=== PATIENT | female | born 1970 | race Caucasian/White ===

== ENCOUNTER 2017-11-18 21:57 | Emergency (ER) | payer OTHER ==
[~2017-11-18] VITALS: Ht 160 cm; Wt 125.0 kg
[~2017-11-18 21:57] MED LIST: HYZAAR 100-21 TABLET PO; IMITREX50 MG PO; LEXAPRO20 MG PO; LOPRESSOR25 MG PO; ONE-A-DAY ESSE1 EAC1 PO; VENTOLIN HFA18 GM IH; VITAMIN D22000 UNIT PO; Z-SLEEP50 MG/30 M PO
[2017-11-18 22:28] LABS: HEMATOCRIT 43.2 % (36.0-46.0); HEMOGLOBIN 15.2 G/DL (11.9-15.5); MCH 29.9 PG (29.0-34.0); MCHC 35.2 G/DL (30.0-36.0); PLATELET COUNT 447 K/uL (156-360); RBC DIS.WIDTH-CV 12.6 % (11.8-14.6); RBC DIS.WIDTH-SD 39.1 % (39-53); RED BLOOD COUNT 5.08 M/uL (3.80-5.20); WHITE BLOOD COUNT 12.9 K/uL (4.1-10.2)
[2017-11-18 22:40] LABS: ALBUMIN 4.2 g/dL (3.2-4.8); CHLORIDE 104 mEq/L (99-109); POTASSIUM 3.7 mEq/L (3.7-5.4); SODIUM 139 mEq/L (136-147)
[2017-11-18 22:42] LABS: GLUCOSE 156 mg/dL (70-99); TOTAL PROTEIN 8.2 g/dL (6.4-8.3)
[2017-11-18 22:44] LABS: TOTAL BILIRUBIN 0.4 mg/dL (0.0-1.0)
[2017-11-18 22:46] LABS: ALKALINE PHOSPHATASE 67 IU/L (3-129); GFR ESTIMATE (CALCULATED) > 59 mL/min/
[2017-11-18 22:47] LABS: UREA NITROGEN (BUN) 15 mg/dL (9-23)
[2017-11-18 22:48] LABS: AST (GOT) 21 IU/L (2-34)
[2017-11-18 22:49] LABS: ALT (GPT) 23 IU/L (3-49)
[2017-11-18 22:55] LABS: QUANTITATIVE HCG < 4.0 MIU/ML
[2017-11-19 00:37] LABS: TROP-I INTERPRETATION NEGATIVE; TROPONIN-I < 0.01 ng/mL (0.0-0.30)
[2017-11-19 01:12] LABS: APPEARANCE SL.HAZY ((CLEAR)); BILIRUBIN NEGATIVE; BLOOD NEGATIVE; COLOR YELLOW ((YELLOW)); GLUCOSE (STRIP) NEGATIVE; KETONES 5; LEUKOCYTES NEGATIVE; NITRITE NEGATIVE; PROTEIN (STRIP) 30; UROBILINOGEN 0.2 MG/DL (0.2-1.0)
[2017-11-19 01:21] LABS: BACTERIA NONE SEEN /HPF; EPITHELIAL CELLS 1+ /HPF; MUCUS 3+ /LPF; RED BLOOD CELLS 0-5 /HPF (0-5); UCUL ADDED? NO; WHITE BLOOD CELLS 0-5 /HPF (0-5)
[2017-11-19 02:15] VITALS: BP 113/78
== END 2017-11-19 02:29 | disposition home or self-care (01) ==
LOC: EME 21:57
DX: E86.1 Hypovolemia (principal); R55 Syncope and collapse; R73.9 Hyperglycemia, unspecified; R11.2 Nausea with vomiting, unspecified; R51 Headache; I10 Essential (primary) hypertension; Z87.442 Personal history of urinary calculi; Z90.49 Acquired absence of other specified parts of digestive tract
CPT/HCPCS: 80053; 81003; 82948; 84484; 84702; 85027; 93005; 99281; 99285